=== PATIENT | female | born 1950 | race Caucasian/White ===

== ENCOUNTER 2018-01-21 22:29 | Inpatient (IN) | payer OTHER, MEDICARE ==
[~2018-01-21] VITALS: Ht 162.6 cm; Wt 142.0 kg
[~2018-01-21 22:29] MED LIST: ASPI81CH5 PO; CALC-197 PO; DESE1CRE; DYAZ PO; ESTR42.5V PV; FENO35TA PO; GABA250S PO; GLYB1TAB51 PO; METF-324 PO; NIAC500 PO; NORV2.5T11 PO; PREV30CA36 PO; SITA100 PO; TAB-TAB PO; VASO10TA8 PO; VITA-13 PO; VITA100L OR; VITA500T10 PO; ZOCO40TA PO
[2018-01-21 22:39] VITALS: BP 127/78; PULSE 87; RESP 16; TEMP 97.7; O2SAT 97
[2018-01-22] VITALS (7 sets, daily range): BP systolic 105–187; BP diastolic 51–106; PULSE 80–102; RESP 15–17; TEMP 98.1–98.9; O2SAT 92–97
--- NOTE | 2018-01-22 01:58 | PD ---
HPI Chief Complaint: Abdominal Pain Time Seen by Provider: 01:15 Travel History International Travel<30 days: No Contact w/Intl Traveler<30days: No Traveled to known affect area: No History of Present Illness HPI Patient is a 67-year-old female with history of hypertension and diabetes. She is coming into the ER saying she is having abdominal pain off and on for the last few months. But today she is having worse pain periumbilical and diffuse nausea vomiting at home and she said she vomited 3 times awaiting in the ER. Patient is on Lantus and she is on multiple antihypertensives including a combination water pill as well as enalapril and Norvasc pressure in the ER is 187/110 she says she took all her meds main complaint is nausea vomiting chronic abdominal pain she says she has never had a CAT scan for this pain and she has been been given Hyoscyamine for colitis spasms from PCP which she took tonight without relief. PFSH Past Medical History Cardiac Catheterization: Yes (40% BLOCKAGE ) High Cholesterol: Yes Coronary Artery Disease: Yes Diabetes: Yes Patient Takes Glucophage: Yes Diminished Hearing: No Gastrointestinal Disorders: Yes (ULCER) GERD: Yes Hiatal Hernia: Yes Hypertension: Yes Integumentary: Yes (BASAL CELL ) Immunizations Current: No Ulcer: Yes (PEPTIC, DUODENAL) Influenza Vaccination: No Menopausal: Yes : 0 Para: 0 Past Surgical History Hysterectomy: Yes (PARTIAL 20 YRS AGO) Other Surgery: Yes (LEFT HAND CYST REMOVAL, BASAL CELL REMOVED FOREHEAD) Social History Alcohol Use: Yes (OCC) Tobacco Use: No Substance Use: No Allergies-Medications (Allergen,Severity, Reaction): Coded Allergies: diatrizoate meglumine (Unverified Allergy, Intermediate, HIVES, EDEMA, ) gadobenic acid (Unverified Allergy, Intermediate, HIVES, EDEMA, 01/21/18) gadodiamide (Unverified Allergy, Intermediate, HIVES, EDEMA, 01/21/18) gadoteridol (Unverified Allergy, Intermediate, HIVES, EDEMA, 01/21/18) iodixanol (Unverified Allergy, Intermediate, HIVES, EDEMA, 01/21/18) iohexol (Unverified Allergy, Intermediate, Hives, 01/21/18) Reported Meds & Prescriptions Reported Meds & Active Scripts Active Reported Ocuvite Adult 50+ (Multiple Vitamins W/ Minerals) 1 Cap 1 Cap PO DAILY Niacin 500 Mg Tab 500 Mg PO BID Vitamin D3 (Cholecalciferol) 1,000 Unit Tab 1,000 Units PO DAILY Vitamin B-12 (Cyanocobalamin) 500 Mcg Tab 500 Mcg PO DAILY Aspirin 81 Mg Chew 81 Mg CHEW DAILY Vitamin C (Ascorbic Acid) 1,000 Mg Tablet.er 1,000 Mg PO DAILY Multiple Vitamin 1 Tab 1 Tab PO DAILY Calcium Carbonate 1,500 Mg Tab 1,500 Mg PO DAILY 1,500 mg calcium carbonate (600 mg elemental calcium) Norvasc (Amlodipine Besylate) 2.5 Mg Tab 2.5 Mg PO DAILY Metformin (Metformin HCl) 500 Mg Tab 500 Mg PO BIDPC Levothyroxine (Levothyroxine Sodium) 25 Mcg Tab 25 Mcg PO DAILY Victoza Inj (Liraglutide Inj) 18 Mg/3 Ml Pen 1.8 Mg SQ HS Invokana (Canagliflozin) 300 Mg Tab 300 Mg PO DAILY Take before 1st meal of day. Simvastatin 5 Mg Tab 5 Mg PO DAILY Gabapentin 300 Mg Cap 300 Mg PO BID Fenofibric Acid Dr (Choline Fenofibrate DR) 135 mg Capdr 135 Mg PO DAILY Physical Exam Narrative GENERAL: Nontoxic-appearing morbidly obese SKIN: Warm and dry. HEAD: Atraumatic. Normocephalic. EYES: Pupils equal and round. No scleral icterus. No injection or drainage. ENT: No nasal bleeding or discharge. Mucous membranes pink and moist. NECK: Trachea midline. No JVD. CARDIOVASCULAR: Regular rate and rhythm. RESPIRATORY: No accessory muscle use. Clear to auscultation. Breath sounds equal bilaterally. GASTROINTESTINAL: Abdomen obese and diffusely tender no specific focal findings , . Hepatic and splenic margins not palpable. MUSCULOSKELETAL: Extremities without clubbing, cyanosis, or edema. No obvious deformities. NEUROLOGICAL: Awake and alert. No obvious cranial nerve deficits. Motor grossly within normal limits. Five out of 5 muscle strength in the arms and legs. Normal speech. PSYCHIATRIC: Appropriate mood and affect; insight and judgment normal. Data Data Last Documented VS Vital Signs Date Time Temp Pulse Resp B/P (MAP) Pulse Ox O2 Delivery O2 Flow Rate FiO2 01/22/18 03:48 92 15 124/64 (84) 97 01/22/18 01:47 Room Air 01/21/18 22:39 97.7 Orders Orders Complete Blood Count With Diff (01/21/18 23:48) Comprehensive Metabolic Panel (01/21/18 23:48) Urinalysis - C+S If Indicated (01/21/18 23:48) Iv Access Insert/Monitor (01/21/18 23:48) Oxygen Administration (01/21/18 23:48) Oximetry (01/21/18 23:48) Lipase (01/21/18 23:48) Sodium Chlorid 0.9% 500 Ml Inj (Ns 500 M (01/22/18 02:00) Famotidine Inj (Pepcid Inj) (01/22/18 02:00) Ondansetron Inj (Zofran Inj) (01/22/18 02:00) Morphine Inj (Morphine Inj) (01/22/18 02:00) Diatrizoate Liq ( Gastroview Liq) (01/22/18 02:00) Ct Abd/Pel W/O Iv Contrast (01/22/18 ) Admit Order (Ed Use Only) (01/22/18 04:10) Piperacil-Tazo 4.5 Gm Premix (Zosyn 4.5 (01/22/18 04:00) Admit To Inpatient (01/22/18 ) Vital Signs (Adult) Q4H (01/22/18 04:08) Activity Oob With Assistance (01/22/18 04:08) Intake + Output LEXIS.QSHIFT (01/22/18 04:08) Diet Npo (01/22/18 Breakfast) Sodium Chlor 0.9% 1000 Ml Inj (Ns 1000 M (01/22/18 04:08) Sodium Chloride 0.9% Flush (Ns Flush) (01/22/18 04:15) Sodium Chloride 0.9% Flush (Ns Flush) (01/22/18 09:00) Ondansetron Inj (Zofran Inj) (01/22/18 04:15) Comprehensive Metabolic Panel (01/23/18 06:00) Complete Blood Count With Diff (01/23/18 06:00) Scd Bilateral/Knee High LEXIS.BID (01/22/18 04:08) Nish Bilateral/Knee High LEXIS.QSHIFT (01/22/18 04:11) Acetaminophen (Tylenol) (01/22/18 04:15) Acetamin-Hydrocod 325-5 Mg (Lamont 5-325 (01/22/18 04:15) Morphine Inj (Morphine Inj) (01/22/18 04:15) Docusate Sodium-Senna (Johanny-Colace) (01/22/18 09:00) Magnesium Hydroxide Liq (Milk Of Magnesi (01/22/18 04:15) Sennosides (Senokot) (01/22/18 04:15) Bisacodyl Supp (Dulcolax Supp) (01/22/18 04:15) Lactulose Liq (Lactulose Liq) (01/22/18 04:15) Inpatient Certification (01/22/18 ) Labs Laboratory Tests Test 01/22/18 01:40 White Blood Count 16.8 TH/MM3 Red Blood Count 5.91 MIL/MM3 Hemoglobin 17.2 GM/DL Hematocrit 51.0 % Mean Corpuscular Volume 86.3 FL Mean Corpuscular Hemoglobin 29.1 PG Mean Corpuscular Hemoglobin Concent 33.7 % Red Cell Distribution Width 13.9 % Platelet Count 300 TH/MM3 Mean Platelet Volume 8.4 FL Neutrophils (%) (Auto) 79.2 % Lymphocytes (%) (Auto) 15.5 % Monocytes (%) (Auto) 4.6 % Eosinophils (%) (Auto) 0.4 % Basophils (%) (Auto) 0.3 % Neutrophils # (Auto) 13.3 TH/MM3 Lymphocytes # (Auto) 2.6 TH/MM3 Monocytes # (Auto) 0.8 TH/MM3 Eosinophils # (Auto) 0.1 TH/MM3 Basophils # (Auto) 0.0 TH/MM3 CBC Comment DIFF FINAL Differential Comment Urine Color YELLOW Urine Turbidity CLEAR Urine pH 5.0 Urine Specific [place] 1.041 Urine Protein NEG mg/dL Urine Glucose (UA) 1000 mg/dL Urine Ketones TRACE mg/dL Urine Occult Blood NEG Urine Nitrite NEG Urine Bilirubin NEG Urine Urobilinogen LESS THAN 2.0 MG/DL Urine Leukocyte Esterase TRACE Urine RBC 2 /hpf Urine WBC 4 /hpf Urine Squamous Epithelial Cells 2 /hpf Microscopic Urinalysis Comment CULT NOT INDICATED Blood Urea Nitrogen 22 MG/DL Creatinine 1.05 MG/DL Random Glucose 220 MG/DL Total Protein 8.1 GM/DL Albumin 4.0 GM/DL Calcium Level 10.2 MG/DL Alkaline Phosphatase 86 U/L Aspartate Amino Transf (AST/SGOT) 34 U/L Alanine Aminotransferase (ALT/SGPT) 40 U/L Total Bilirubin 0.5 MG/DL Sodium Level 138 MEQ/L Potassium Level 4.1 MEQ/L Chloride Level 98 MEQ/L Carbon Dioxide Level 27.8 MEQ/L Anion Gap 12 MEQ/L Estimat Glomerular Filtration Rate 52 ML/MIN Lipase 234 U/L [facility] Medical Decision Making Medical Screen Exam Complete: Yes Emergency Medical Condition: Yes Differential Diagnosis GERD IBS crohns UC ileus paralytic ileus , chronic ABDO pain NOS hernia incarcerated ,other pancreatitis gastritis GB disease Narrative Course CT shows Hernia with SBO early or partial and Dr Webb is called and he comes bedside withoin 30 minutes and pt is taken to the OR for reduction surgical , IV fluid and pain meds and NPO for OR Physician Communication Physician Communication dr webb surgery Diagnosis Primary Impression: Bowel obstruction Qualified Codes: K56.600 - Partial intestinal obstruction, unspecified as to cause Additional Impression: Incarcerated hernia Admitting Information Admitting Physician Requests: Admit Scripts Hydrocodone-Acetaminophen (Lamont) 5 Mg-325 Mg Tab 1 TAB PO Q4H Y for PAIN, #20 TAB 0 Refills Prov: Mireya Rubalcava MD 01/23/18 Levofloxacin (Levaquin) 750 Mg Tablet 750 MG PO DAILY for Infection, #7 TAB 0 Refills Prov: Mireya Rubalcava MD 01/23/18 Kristopher Noel MD Jan 22, 2018 01:58
[2018-01-22] MEDS ORDERED: MORPHINE SULFATE 2 MG/ML INJ IV PUSH ONE ×2 (02:00→04:45)
[2018-01-22] MEDS ORDERED: SODIUM CHLORID 0.9% 500 ML INJ 500 ML IV ONE ×2 (02:00→04:15)
[2018-01-22] MEDS ORDERED: FAMOTIDINE 20 MG/2 ML VIAL IV PUSH SCH (02:00)
[2018-01-22] MEDS ORDERED: ONDANSETRON HCL 4 MG/2 ML VIAL IV PUSH ONE (02:00)
[2018-01-22] MEDS ORDERED: DIATRIZOATE MEGLUM/DIATRIZOATE SOD 9 ML CUP PO ONE (02:00)
[2018-01-22 02:06] LABS: BILIRUBIN, URINE NEG (NEG); BLOOD, URINE NEG (NEG); GLUCOSE,URINE 1000 mg/dL (NEG); KETONE, URINE TRACE mg/dL (NEG); NITRITE,URINE NEG (NEG); SQUAMOUS EPITHELIAL CELL URINE 2 /hpf (0-5); URINE COLOR YELLOW (YELLW/STRAW); URINE LEUKOCYTE ESTERASE TRACE (NEG)
[2018-01-22 02:21] LABS: ALKALINE PHOSPHATASE 86 U/L (45-117); TOTAL BILIRUBIN ADULT 0.5 MG/DL (0.2-1.0); TOTAL PROTEIN 8.1 GM/DL (6.4-8.2)
[2018-01-22 02:26] LABS: ALT (GPT) 40 U/L (10-53); AST (GOT) 34 U/L (15-37); BICARBONATE 27.8 MEQ/L (21.0-32.0); BLOOD UREA NITROGEN 22 MG/DL (7-18); CALCIUM 10.2 MG/DL (8.5-10.1); CHLORIDE 98 MEQ/L (98-107); CREATININE 1.05 MG/DL (0.50-1.00); GLOMERULAR FILTRATION RATE 52 ML/MIN (>89); GLUCOSE,RANDOM 220 MG/DL (74-106); SODIUM (NA) 138 MEQ/L (136-145)
[2018-01-22 02:30] LABS: AUTOMATED NEUTROPHIL # 13.3 TH/MM3 (1.8-7.7); BASOPHIL % 0.3 % (0.0-2.0); EOSINOPHIL # 0.1 TH/MM3 (0-0.4); EOSINOPHIL % 0.4 % (0.0-4.0); HEMOGLOBIN 17.2 GM/DL (11.6-15.3); LYMPH % 15.5 % (9.0-44.0); LYMPHOCYTE # 2.6 TH/MM3 (1.0-4.8); MEAN CELL VOLUME 86.3 FL (80.0-100.0); MEAN CORPUSCULAR HEMOGLOBIN 29.1 PG (27.0-34.0); MEAN CORPUSCULAR HGB CONC 33.7 % (32.0-36.0); MEAN PLATELET VOLUME 8.4 FL (7.0-11.0); MONO % 4.6 % (0.0-8.0); MONOCYTE # 0.8 TH/MM3 (0-0.9); NEUT % 79.2 % (16.0-70.0); PLATELET COUNT 300 TH/MM3 (150-450); RED BLOOD COUNT 5.91 MIL/MM3 (4.00-5.30); RED CELL DISTRIBUTION WIDTH 13.9 % (11.6-17.2); WHITE BLOOD COUNT 16.8 TH/MM3 (4.0-11.0)
--- NOTE | 2018-01-22 02:41 | RADRPT ---
EXAM DATE/TIME: 01/22/2018 02:16 [place] COMPARISON: No previous studies available for comparison. INDICATIONS : Abdominal pain with nausea and vomiting. ORAL CONTRAST: No oral contrast ingested. RADIATION DOSE: 29.32 CTDIvol (mGy) ; Patient body habitus MEDICAL HISTORY : Hypertension. Hernia, hiatal. SURGICAL HISTORY : Hysterectomy. ENCOUNTER: Initial ACUITY: 1 day PAIN SCALE: 8/10 LOCATION: abdomen TECHNIQUE: Volumetric scanning of the abdomen and pelvis was performed. Using automated exposure control and ad justment of the mA and/or kV according to patient size, radiation dose was kept as low as reasonably achievable to obtain optimal diagnostic quality images. DICOM format image data is available electro nically for review and comparison. FINDINGS: LOWER LUNGS: The visualized lower lungs are clear. LIVER: Homogeneous density without lesion. There is no dilation of the biliary tree. No calcified [place] es. SPLEEN: Normal size without lesion. PANCREAS: Within normal limits. KIDNEYS: Normal in size and shape. There is no mass, stone, or hydronephrosis. ADRENAL GLANDS: Within normal limits. VASCULAR: There is no aortic aneurysm. BOWEL/MESENTERY: There are multiple loops of borderline dilated air-containing small bowel in the upper and central ab domen with multiple air-fluid levels. These extend down into the anterior abdominal wall hernia. The bowel loops distal to the hernia are smaller in size in the colon is decompressed. There is no free a ir or fluid. There are scattered diverticuli volving the sigmoid colon. ABDOMINAL WALL: Anterior abdominal wall hernia containing a loop of small bowel. There is mild inflammatory change avendaño rrounding the hernia at the level of the defect.. RETROPERITONEUM: There is no lymphadenopathy. BLADDER: No wall thickening or mass. REPRODUCTIVE: Within normal limits. INGUINAL: There is no lymphadenopathy or hernia. MUSCULOSKELETAL: Within normal limits for patient age. CONCLUSION: 1. Anterior abdominal wall hernia containing a loop of ileum with apparent early or partial obstructi on. The small bowel proximal to the hernia a borderline dilated with multiple air-fluid levels. The b owel distal to the hernia is decompressed. 2. Mild diverticulosis. Derrick French MD on January 22, 2018 at 2:34 Board Certified Radiologist. This report was verified electronically.
[2018-01-22] MEDS ORDERED: PIPERACIL-TAZO 4.5 GM PREMIX 100 ML IV SCH (04:00)
[2018-01-22] MEDS: SODIUM CHLOR 0.9% 1000 ML INJ 1,000 ML IV SCH ×2 (04:08→14:08)
[2018-01-22] MEDS ORDERED: MORPHINE SULFATE 2 MG/ML INJ IV PUSH PRN (04:15)
[2018-01-22] MEDS ORDERED: ONDANSETRON HCL 4 MG/2 ML VIAL IVP PRN (04:15)
[2018-01-22] MEDS ORDERED: SODIUM CHLORIDE 0.9% FLUSH 10 ML FLUSH IV FLUSH PRN (04:15)
[2018-01-22] MEDS ORDERED: ACETAMINOPHEN 325 MG TAB PO PRN (04:15)
[2018-01-22] MEDS ORDERED: BISACODYL 10 MG SUPP RECTAL PRN (04:15)
[2018-01-22] MEDS ORDERED: SENNOSIDES 8.6 MG TAB PO PRN (04:15)
[2018-01-22] MEDS ORDERED: MAGNESIUM HYDROXIDE SUSP 30 ML CUP PO PRN (04:15)
[2018-01-22] MEDS ORDERED: LACTULOSE SYRUP 20 GM/30 ML CUP PO PRN (04:15)
[2018-01-22] MEDS ORDERED: ACETAMINOPHEN/HYDROcodone 325 MG/5 MG TAB PO PRN (04:15)
[2018-01-22] MEDS ORDERED: SIMV5TAB3 PO (04:41)
[2018-01-22] MEDS ORDERED: LEVO25TA4 PO (04:41)
[2018-01-22] MEDS ORDERED: NIAC500T5 PO (04:41)
[2018-01-22] MEDS ORDERED: VITA500T4 PO (04:41)
[2018-01-22] MEDS ORDERED: ASPI-516 CHEW (04:41)
[2018-01-22] MEDS ORDERED: ASCO100029 PO (04:41)
[2018-01-22] MEDS ORDERED: NORV2.5T PO (04:41)
[2018-01-22] MEDS ORDERED: METF500T PO (04:41)
[2018-01-22] MEDS ORDERED: VICT18IN SQ (04:41)
[2018-01-22] MEDS ORDERED: LANTUS2P SQ (04:41)
[2018-01-22] MEDS ORDERED: CALC600T4 PO (04:41)
[2018-01-22] MEDS ORDERED: VITA100018 PO (04:41)
[2018-01-22] MEDS ORDERED: OCUVCAP2 PO (04:41)
[2018-01-22] MEDS ORDERED: GABA300C5 PO (04:41)
[2018-01-22] MEDS ORDERED: ENAL20TA PO (04:41)
[2018-01-22] MEDS ORDERED: CHOL1CAP2 PO (04:41)
[2018-01-22] MEDS ORDERED: TRIA37.53 PO (04:41)
[2018-01-22] MEDS ORDERED: CANA300T PO (04:41)
[2018-01-22] MEDS ORDERED: MULTTAB67 PO (04:41)
[2018-01-22] MEDS ORDERED: GLUCAGON 1 MG/ML VIAL OTHER PRN (04:45)
[2018-01-22] MEDS ORDERED: DEXTROSE 50% IN WATER 50 ML VIAL(D50) IV PUSH PRN (04:45)
--- NOTE | 2018-01-22 04:45 | HHI.HP ---
[facility] Service [facility] Primary Care Physician Eugene Mark MD Admission Diagnosis hernia with early obstruction Diagnoses: (1) Bowel obstruction Diagnosis: Principal (2) Hernia Diagnosis: Principal (3) Leukocytosis Diagnosis: Principal (4) HTN (hypertension) Diagnosis: Principal (5) DM (diabetes mellitus) Diagnosis: Principal Travel History International Travel<30 Days: No Contact w/Intl Traveler <30 Da: No Traveled to Known Affected Are: No History of Present Illness This is a 67-year-old female with a PMH of HTN, Hyperlipidemia, CAD, DM and PUD who presented to ER with complaints of abdominal pain x2 months. States pain has been intermittent, cramping, associated w/ nausea/vomiting. Today, states pain was severe 8-07/11, took Hycosamine however no improvement at which time she came to the ER. Denies fever, chills or diarrhea. On arrival, BP 127/78, HR 87, O2 sat 97% on RA, Afebrile. WBC 16.8. Creatinine 1.05, produces 0.55 on 05/11/14. BS 220. UA negative for UTI. CT Abdomen/Pelvis with anterior abdominal wall hernia containing a loop of ileum with partial obstruction. Dr. Webb consulted, plan is for surgical intervention this morning. Review of Systems Except as stated in HPI: all other systems reviewed are Neg ROS: 14 point review of systems otherwise negative. Past Family Social History Past Medical History PMH: HTN, Hyperlipidemia, CAD, DM and PUD Past Surgical History PAST SURGICAL HISTORY: Partial Hysterectomy Allergies: Coded Allergies: diatrizoate meglumine (Unverified Allergy, Intermediate, HIVES, EDEMA, ) gadobenic acid (Unverified Allergy, Intermediate, HIVES, EDEMA, 01/21/18) gadodiamide (Unverified Allergy, Intermediate, HIVES, EDEMA, 01/21/18) gadoteridol (Unverified Allergy, Intermediate, HIVES, EDEMA, 01/21/18) iodixanol (Unverified Allergy, Intermediate, HIVES, EDEMA, 01/21/18) iohexol (Unverified Allergy, Intermediate, Hives, 01/21/18) Family History PAST FAMILY HISTORY: Reviewed. No h/o DM or CAD Social History PAST SOCIAL HISTORY: Occasional alcohol. Negative for tobacco or drugs. Physical Exam Vital Signs Vital Signs Date Time Temp Pulse Resp B/P (MAP) Pulse Ox O2 Delivery O2 Flow Rate FiO2 01/22/18 03:48 92 15 124/64 (84) 97 01/22/18 01:47 85 16 187/106 (133) 95 Room Air 01/22/18 01:44 96 Room Air 01/21/18 22:39 97.7 87 16 127/78 (94) 97 Room Air Physical Exam PE: GENERAL: Pleasant middle-aged white female in no acute distress. HEENT: PERRLA, EOMI. No scleral icterus or conjunctival pallor. No lid lag or facial droop. CARDIOVASCULAR: Regular rate and rhythm. No obvious murmurs to auscultation. No chest tenderness to palpation. RESPIRATORY: No obvious rhonchi or wheezing. Clear to auscultation. Breath sounds equal bilaterally. GASTROINTESTINAL: Abdomen soft, generalized tenderness to palpation, nondistended. BS normal. MUSCULOSKELETAL: Extremities without clubbing, cyanosis, or edema. No obvious deformities. NEUROLOGICAL: Awake, alert and oriented x4. No focal neurologic deficits. Moving both upper and lower extremities spontaneously. Laboratory Laboratory Tests Test 01/22/18 01:40 White Blood Count 16.8 Red Blood Count 5.91 Hemoglobin 17.2 Hematocrit 51.0 Mean Corpuscular Volume 86.3 Mean Corpuscular Hemoglobin 29.1 Mean Corpuscular Hemoglobin Concent 33.7 Red Cell Distribution Width 13.9 Platelet Count 300 Mean Platelet Volume 8.4 Neutrophils (%) (Auto) 79.2 Lymphocytes (%) (Auto) 15.5 Monocytes (%) (Auto) 4.6 Eosinophils (%) (Auto) 0.4 Basophils (%) (Auto) 0.3 Neutrophils # (Auto) 13.3 Lymphocytes # (Auto) 2.6 Monocytes # (Auto) 0.8 Eosinophils # (Auto) 0.1 Basophils # (Auto) 0.0 CBC Comment DIFF FINAL Differential Comment Urine Color YELLOW Urine Turbidity CLEAR Urine pH 5.0 Urine Specific [place] 1.041 Urine Protein NEG Urine Glucose (UA) 1000 Urine Ketones TRACE Urine Occult Blood NEG Urine Nitrite NEG Urine Bilirubin NEG Urine Urobilinogen LESS THAN 2.0 Urine Leukocyte Esterase TRACE Urine RBC 2 Urine WBC 4 Urine Squamous Epithelial Cells 2 Microscopic Urinalysis Comment CULT NOT INDICATED Blood Urea Nitrogen 22 Creatinine 1.05 Random Glucose 220 Total Protein 8.1 Albumin 4.0 Calcium Level 10.2 Alkaline Phosphatase 86 Aspartate Amino Transf (AST/SGOT) 34 Alanine Aminotransferase (ALT/SGPT) 40 Total Bilirubin 0.5 Sodium Level 138 Potassium Level 4.1 Chloride Level 98 Carbon Dioxide Level 27.8 Anion Gap 12 Estimat Glomerular Filtration Rate 52 Lipase 234 Result Diagram: 01/22/1813901/22/18139 Caprini VTE Risk Assessment Caprini VTE Risk Assessment: No/Low Risk (score <= 1) Caprini Risk Assessment Model Point Value = 1 Point Value = 2 Point Value = 3 Point Value = 5 Age 41-60 Minor surgery BMI > 25 kg/m2 Swollen legs Varicose veins or History of unexplained or recurrent spontaneous Oral contraceptives or hormone replacement Sepsis (< 1 month) Serious lung disease, including pneumonia (< 1 month) Abnormal pulmonary function Acute myocardial infarction Congestive heart failure (< 1 month) History of inflammatory bowel disease Medical patient at bed rest Age 61-74 Arthroscopic surgery Major open surgery (> 45 min) Laparoscopic surgery (> 45 min) Malignancy Confined to bed (> 72 hours) Immobilizing plaster cast Central venous access Age >= 75 History of VTE Family history of VTE Factor V Leiden Prothrombin [id number] Lupus anticoagulant Anticardiolipin antibodies Elevated serum homocysteine Heparin-induced thrombocytopenia Other congenital or acquired thrombophilia Stroke (< 1 month) Elective arthroplasty Hip, pelvis, or leg fracture Acute spinal cord injury (< 1 month) Prophylaxis Regimen Total Risk Factor Score Risk Level Prophylaxis Regimen 0-1 Low Early ambulation 2 Moderate Order ONE of the following: *Sequential Compression Device (SCD) *Heparin 5000 units SQ BID 3-4 Higher Order ONE of the following medications: *Heparin 5000 units SQ TID *Enoxaparin/Lovenox 40 mg SQ daily (WT < 150 kg, CrCl > 30 mL/min) *Enoxaparin/Lovenox 30 mg SQ daily (WT < 150 kg, CrCl > 10-29 mL/min) *Enoxaparin/Lovenox 30 mg SQ BID (WT < 150 kg, CrCl > 30 mL/min) AND/OR *Sequential Compression Device (SCD) 5 or more Highest Order ONE of the following medications: *Heparin 5000 units SQ TID (Preferred with Epidurals) *Enoxaparin/Lovenox 40 mg SQ daily (WT < 150 kg, CrCl > 30 mL/min) *Enoxaparin/Lovenox 30 mg SQ daily (WT < 150 kg, CrCl > 10-29 mL/min) *Enoxaparin/Lovenox 30 mg SQ BID (WT < 150 kg, CrCl > 30 mL/min) AND *Sequential Compression Device (SCD) Assessment and Plan Problem List: (1) Bowel obstruction ICD Code: K56.609 - Unspecified intestinal obstruction, unspecified as to partial versus complete obstruction (2) Hernia ICD Code: K46.9 - Unspecified abdominal hernia without obstruction or gangrene (3) Leukocytosis ICD Code: D72.829 - Elevated white blood cell count, unspecified (4) HTN (hypertension) ICD Code: I10 - Essential (primary) hypertension (5) DM (diabetes mellitus) ICD Code: E11.9 - Type 2 diabetes mellitus without complications Assessment and Plan A/P: 1. Bowel Obstruction: Partial. CT Abd/Pelvis w/ early/partial obstruction secondary to hernia, images reviewed by me. Dr. Webb consulted, plan is for surgical intervention this morning. NPO, IVF, analgesics/antiemetics as needed. 2. Hernia: c/o abdominal pain x2 months, CT Abd/Pelvis w/ anterior abdominal wall hernia causing obstruction as above. Pending surgical intervention. 3. Leukocytosis: WBC 16.8, U/a negative for UTI. Start on empiric antibiotics w/ Zosyn IV, repeat labs in am. 4. HTN: Uncontrolled. BP 180's, likely compounded by pain complaints. Optimize pain control. Monitor BP. Antihypertensives as needed. 5. DM: Sliding scale w/ Accu-Cheks. Hold home Lantus for surgical intervention. 6. DVT Prophylaxis: SCD/Teds. 7. Social work for d/c planning as needed. 8. Case discussed w/ ER physician at length, labs/records/imaging reviewed by me. Physician Certification 2 Midnight Certification Type: Admission for Inpatient Services Order for Inpatient Services The services are ordered in accordance with Medicare regulations or non- Medicare payer requirements, as applicable. In the case of services not specified as inpatient-only, they are appropriately provided as inpatient services in accordance with the 2-midnight benchmark. Estimated LOS (days): 2 days is the estimated time the patient will need to remain in the hospital, assuming treatment plan goals are met and no additional complications. Post-Hospital Plan: Not yet determined Neyda Aguayo MD Jan 22, 2018 04:45
[2018-01-22] MEDS ORDERED: SODIUM BICARBONATE 8.4% INJ 50 MEQ/50 ML SYR ONE (04:55)
[2018-01-22] MEDS ORDERED: LIDOCAINE 1%/EPINEPHrine 1:100,000 SOLN 30 ML VIAL ONE (04:55)
[2018-01-22] MEDS ORDERED: BUPIVACAINE HCL PF 0.5% 30 ML VIAL ONE (04:56)
[2018-01-22] MEDS ORDERED: BACITRACIN TOP OINT 15 GM TUBE ONE (04:56)
[2018-01-22] MEDS ORDERED: ACETAMINOPHEN 1000 MG/100 ML 100 ML IV ONE (05:03)
[2018-01-22] MEDS ORDERED: FAMOTIDINE 20 MG/2 ML VIAL ONE (05:03)
[2018-01-22] MEDS ORDERED: metroNIDAZOLE 500 MG INJ 100 ML IV ONE (05:12)
[2018-01-22] MEDS ORDERED: ceFAZolin INJ 1,000 MG VIAL ONE (05:32)
--- NOTE | 2018-01-22 05:37 | MB ---
cc: Chuck Webb MD DATE: 01/22/2018 DATE OF CONSULTATION: 01/22/2018. REASON FOR CONSULTATION: Incarcerated umbilical hernia. HISTORY OF PRESENT ILLNESS: Ms. Esquivel is a pleasant 67-year-old morbidly obese female who presented to the emergency department with a 1-day history of severe abdominal pain associated with nausea and vomiting. She states that yesterday she developed worsening abdominal pain associated with multiple episodes of nausea and vomiting. She states she has had some lower abdominal pain for the last few months, but this episode in the last 24 hours was much worse. She had no known history of an umbilical hernia, but she is morbidly obese. She went to the emergency room where she was seen and evaluated. She had a CT scan of the abdomen and pelvis, which demonstrated an incarcerated umbilical hernia with small bowel causing a mild obstruction. Immediate surgical consultation was requested. The patient reports she did not know that she had a hernia. PAST MEDICAL HISTORY: Includes insulin-dependent diabetes mellitus, gastroesophageal reflux disease, coronary artery disease, history of basal cell carcinoma. PAST SURGICAL HISTORY: She has had a basal cell carcinoma removed from her forehead. She has had a hysterectomy. She has had a cyst excised from her left hand. MEDICATIONS: List is extensive. Please see the EMR. ALLERGIES: Her allergy list includes DIATRIZOATE MEGLUMINE. GADOBENIC ACID. GADODIAMIDE. GADOTERIDOL. IODIXANOL. IOHEXOL. SOCIAL HISTORY: She does not smoke. She drinks alcohol on a social basis. She lives here locally. She is accompanied by her sister in the emergency room. FAMILY HISTORY: Noncontributory. PHYSICAL EXAMINATION: VITAL SIGNS: Temperature is 97, pulse is 80, blood pressure is 120/60, respiratory rate 20. GENERAL: This is a morbidly obese, pleasant female sitting in the emergency room accompanied by her sister. HEENT: Pupils equal, round, anicteric. Sclerae white. Oropharynx is clear and moist. NECK: Supple. No masses. LUNGS: Clear to auscultation bilaterally. HEART: S1, S2. No murmur. ABDOMEN: Soft, tender in the umbilical region with some erythema. There is a palpable mass noted. It is tender. It is nonreducible. EXTREMITIES: Free range of motion x4. NEUROLOGIC: She is alert and oriented x3. LABORATORY DATA: White blood cell count 16, hemoglobin 17, platelet count is 300. Electrolytes within normal limits. Slight elevation of creatinine 1.05, elevation of glucose 220. Urinalysis is negative. CT of the abdomen and pelvis demonstrates an incarcerated anterior abdominal wall hernia with small bowel, causing mild obstruction of proximal small bowel; distal bowel is decompressed. No significant edema of the bowel is noted in the incarcerated hernia. IMPRESSION: Incarcerated abdominal wall hernia with small bowel, causing obstruction. PLAN: Immediate operative intervention was recommended to the patient. Risks and benefits of the procedure including possible infection, recurrent hernia, leakage of bowel, stroke, heart attack, wound infection was all discussed with the patient. She understands. She understands this is an emergent surgical procedure and carries an increased risk due to her morbid obesity and insulin-dependent diabetes mellitus. She had a clear understanding of this and is willing to proceed with surgery. The operating room was notified and she will be brought up immediately. MD KEM Aguilar/KANE , 05:00 AM , 05:35 AM
[2018-01-22] MEDS ORDERED: MORPHINE SULFATE 4 MG/ML INJ IV PUSH PRN (06:30)
[2018-01-22] MEDS ORDERED: HYDROmorphone HCL PF 1 MG/ML VIAL IV PUSH PRN (06:30)
[2018-01-22] MEDS ORDERED: KETOROLAC TROMETHAMINE 60 MG/2 ML (IM) VIAL IM PRN (06:30)
--- NOTE | 2018-01-22 06:52 | MP ---
cc: Chuck Webb MD DATE OF OPERATION: 01/22/2018 DATE OF PROCEDURE: 01/22/2018 PREOPERATIVE DIAGNOSIS: Incarcerated umbilical hernia causing partial small-bowel obstruction. POSTOPERATIVE DIAGNOSIS: 1. Incarcerated umbilical hernia causing partial small-bowel obstruction. 2. Viable bowel and a large amount of omentum within hernia sac. PROCEDURE PERFORMED: Reduction and repair of open umbilical hernia (primary repair). SURGEON: Chuck Webb MD. ANESTHESIA: General endotracheal. COMPLICATIONS: None. INDICATIONS FOR PROCEDURE: Ms. Esquivel is a pleasant 67-year-old morbidly obese female who presented to the emergency department with abdominal pain, nausea and vomiting. CT imaging demonstrated an umbilical hernia with a loop of small bowel and a large amount of omentum within it. The loop of small bowel was causing a partial obstruction proximally. She was advised to go the operating room immediately. She understood this was a high-risk surgery due to her morbid obesity and the fact this was an emergency surgery, and she was willing to proceed. DETAILS OF PROCEDURE: The patient was identified, brought to the operating room, placed supine on the operating table. After adequate general anesthesia was achieved, the abdomen was prepped and draped in standard surgical fashion. Supraumbilical space was anesthetized with 0.25% Marcaine. Supraumbilical incision was made. Dissection was carried down through subcutaneous tissue, immediately identifying a hernia sac. The hernia sac was dissected circumferentially away from the umbilical stalk. Hernia sac was opened and found to contain some bloody fluid. The majority of the hernia sac was omentum. There was a single loop of small bowel, which basically spontaneously reduced when we opened the hernia sac. It was noted to be pink and viable and not compromised in any way. Because of the large amount of omentum stuck within the hernia sac, I elected to go ahead and resect it, as it would not spontaneously reduce without significant difficulty. The omentum was clamped, and tied off with 2-0 Vicryl sutures, and freed up completely. Once the omentum was freed up, it was sent to pathology for analysis. Attention was now directed to the hernia sac. The hernia sac was followed down to the abdominal wall fascia. Abdominal wall fascia was then cleaned off circumferentially. Hernia sac was then resected at the level of the abdominal wall fascia. Hernia sac was also sent to pathology for analysis. Attention was now directed to repair. Because this was incarcerated hernia, I elected to do a primary repair without mesh. Defect measured about 3 cm in diameter. It was closed primarily using 0 Prolene sutures, interrupted x5. Repair came together quite well. The tissue quality was good. A finger sweep of the peritoneum was done prior to closure and there was no other bowel or omentum anywhere near the fascial defect. With this, the repair was completed. Fascia was injected with 0.25% Marcaine circumferentially. The wound was copiously irrigated with normal saline solution. The umbilical stalk was then tacked down to the abdominal fascia using a 2-0 Vicryl suture. Subcutaneous fat was then closed with 3-0 Vicryl and skin was closed with 4-0 Vicryl. The patient tolerated the procedure well and was awakened and brought to recovery room in stable condition. Chuck MD KEM Luciano/MARTI , 06:28 AM , 06:51 AM
[2018-01-22] MEDS ORDERED: KETOROLAC TROMETHAMINE 30 MG/ML (IVP) VIAL IV PUSH PRN (07:00)
[2018-01-22] MEDS: PIPERACIL-TAZO 4.5 GM PREMIX 100 ML IV SCH ×3 (07:20→20:36)
[2018-01-22] MEDS ORDERED: DO NOT ADM ANY ANTICOAGULANT DRUGS PRN (07:45)
[2018-01-22] MEDS: INSULIN ASPART SUPPLEMENTAL SCALE SQ SCH ×4 (08:00→20:41)
[2018-01-22] MEDS: DOCUSATE SODIUM 50 MG/SENNA 8.6 MG TAB PO SCH ×2 (08:17→20:37)
[2018-01-22] MEDS: SODIUM CHLORIDE 0.9% FLUSH 10 ML FLUSH IV FLUSH SCH ×2 (08:17→21:00)
--- NOTE | 2018-01-22 12:12 | HHI.PR ---
Subjective Remarks Follow-up for incarcerated hernia Patient just got back from surgery. She has no complaints. She has a NG tube still in place on intermittent suction. Per patient's nurse she refused her insulin and I educated patient on this then she denied this to me. She has no other complaints. She said that she feels good at the moment. Denies any abdominal pain. Denies nausea or vomiting. Objective Vitals Vital Signs Date Time Temp Pulse Resp B/P (MAP) Pulse Ox O2 Delivery O2 Flow Rate FiO2 01/22/18 07:45 98.3 87 16 128/69 (88) 95 Nasal Cannula 4 01/22/18 07:30 88 16 130/72 (91) 95 Nasal Cannula 4 01/22/18 07:15 91 16 138/70 (92) 95 Nasal Cannula 4 01/22/18 07:00 90 15 113/59 (77) 95 Nasal Cannula 4 01/22/18 06:45 91 15 111/56 (74) 95 Nasal Cannula 4 01/22/18 06:36 98.5 99 15 138/77 (97) 97 Nasal Cannula 4 01/22/18 04:50 01/22/18 03:48 92 15 124/64 (84) 97 01/22/18 01:47 85 16 187/106 (133) 95 Room Air 01/22/18 01:44 96 Room Air 01/21/18 22:39 97.7 87 16 127/78 (94) 97 Room Air I/O 01/21/18 01/21/18 01/21/18 01/22/18 01/22/18 01/22/18 07:00 15:00 23:00 07:00 15:00 23:00 Intake Total 1200 ml 200 ml Output Total 20 ml 100 ml Balance 1180 ml 100 ml Intake IV Total 200 ml Other 1200 ml Output Urine Total 100 ml Estimated Blood Loss 20 ml Result Diagram: 01/22/18 0140 01/22/18 0140 Objective Remarks GENERAL: in NAD NG tube in place. CARDIOVASCULAR: Regular rate and rhythm without murmurs, gallops, or rubs. RESPIRATORY: Breath sounds equal bilaterally. No accessory muscle use. GASTROINTESTINAL: Abdomen soft, non-tender, nondistended. binder in place. MUSCULOSKELETAL: No cyanosis, or edema. BACK: Nontender without obvious deformity. No CVA tenderness. Medications and IVs Current Medications Sodium Chloride 500 ml @ 500 mls/hr BOLUS ONCE IV Last administered on at 02:03; Start 01/22/18 at 02:00; Stop 01/22/18 at 02:59; Status DC Famotidine (Pepcid Inj) 20 mg ONCE IV PUSH Last administered on 01/22/18at 02:02 ; Start 01/22/18 at 02:00 Ondansetron HCl (Zofran Inj) 4 mg ONCE ONCE IV PUSH Last administered on at 02:03; Start 01/22/18 at 02:00; Stop 01/22/18 at 02:01; Status DC Morphine Sulfate (Morphine Inj) 2 mg ONCE ONCE IV PUSH Last administered on at 02:03; Start 01/22/18 at 02:00; Stop 01/22/18 at 02:01; Status DC Diatrizoate Meglum/ Diatrizoate Sod ( Gastroshakira Liq) 18 ml ONCE ONCE PO ; Start 01/22/18 at 02:00; Stop 01/22/18 at 02:01; Status DC Piperacillin Sod/ Tazobactam Sod 100 ml @ 200 mls/hr Q6H IV ; Start 01/22/18 at 04:00; Stop 01/22/18 at 07:11; Status DC Sodium Chloride 1,000 ml @ 100 mls/hr Q10H IV Last administered on 01/22/18at 04:08; Start 01/22/18 at 04:08 Sodium Chloride (NS Flush) 2 ml UNSCH PRN IV FLUSH FLUSH AFTER USING IV ACCESS ; Start 01/22/18 at 04:15 Sodium Chloride (NS Flush) 2 ml BID IV FLUSH ; Start 01/22/18 at 09:00 Ondansetron HCl (Zofran Inj) 4 mg Q6H PRN IVP NAUSEA OR VOMITING; Start at 04:15 Acetaminophen (Tylenol) 650 mg Q6H PRN PO FEVER; Start 01/22/18 at 04:15 Acetaminophen/ Hydrocodone Bitart ([place] 5-325 Mg) 1 tab Q4H PRN PO PAIN SCALE 3 TO 5; Start 01/22/18 at 04:15; Stop 01/22/18 at 07:00; Status DC Morphine Sulfate (Morphine Inj) 2 mg Q3H PRN IV PUSH Pain 6-10; Start 01/22/18 at 04:15; Stop 01/22/18 at 07:00; Status DC Senna/Docusate Sodium (Johanny-Colace) 1 tab BID PO ; Start 01/22/18 at 09:00 Magnesium Hydroxide (Milk Of Magnesia Liq) 30 ml Q12H PRN PO Mild constipation ; Start 01/22/18 at 04:15 Sennosides (Senokot) 17.2 mg Q12H PRN PO Moderate constipation; Start 01/22/18 at 04:15 Bisacodyl (Dulcolax Supp) 10 mg DAILY PRN RECTAL SEVERE CONSITIPATION; Start at 04:15 Lactulose (Lactulose Liq) 30 ml DAILY PRN PO SEVERE CONSITIPATION; Start at 04:15 Sodium Chloride 500 ml @ 500 mls/hr BOLUS ONCE IV ; Start 01/22/18 at 04:15; Stop 01/22/18 at 05:14; Status DC Morphine Sulfate (Morphine Inj) 2 mg ONCE ONCE IV PUSH Last administered on at 04:44; Start 01/22/18 at 04:45; Stop 01/22/18 at 04:46; Status DC Dextrose (D50w (Vial) Inj) 50 ml UNSCH PRN IV PUSH HYPOGLYCEMIA-SEE COMMENTS; Start 01/22/18 at 04:45 Glucagon (Glucagon Inj) 1 mg UNSCH PRN OTHER HYPOGLYCEMIA-SEE COMMENTS; Start 01/22/18 at 04:45 Insulin Aspart (NovoLOG SUPPLEMENTAL SCALE) 1 ACHS SLIDING SCALE SQ ; Start at 08:00 Lidocaine/ Epinephrine (Xylocaine-Epi 1%-1:100,000 Inj) 30 ml STK-MED ONCE .ROUTE ; Start 01/22/18 at 04:55; Stop 01/22/18 at 04:56; Status DC Sodium Bicarbonate (Sodium Bicarbonate 8.4% Inj) 50 meq STK-MED ONCE .ROUTE ; Start 01/22/18 at 04:55; Stop 01/22/18 at 04:56; Status DC Bupivacaine HCl (Marcaine Pf 0.5% Inj) 30 ml STK-MED ONCE .ROUTE ; Start at 04:56; Stop 01/22/18 at 04:57; Status DC Bacitracin (Baciguent Oint) 15 applic STK-MED ONCE .ROUTE ; Start 01/22/18 at 04 :56; Stop 01/22/18 at 04:57; Status DC Acetaminophen 100 ml @ As Directed STK-MED ONCE IV ; Start 01/22/18 at 05:03; Stop 01/22/18 at 05:04; Status DC Famotidine (Pepcid Inj) 20 mg STK-MED ONCE .ROUTE ; Start 01/22/18 at 05:03; Stop 01/22/18 at 05:04; Status DC Metronidazole 100 ml @ As Directed STK-MED ONCE IV ; Start 01/22/18 at 05:12; Stop 01/22/18 at 05:13; Status DC Cefazolin Sodium (Ancef Inj) 1,000 mg STK-MED ONCE .ROUTE ; Start 01/22/18 at 05 :32; Stop 01/22/18 at 05:33; Status DC Morphine Sulfate (Morphine Inj) 4 mg Q2HR PRN IV PUSH PAIN SCALE 1-3; Start at 06:30 Hydromorphone HCl (Dilaudid Pf Inj) 1 mg Q4H PRN IV PUSH PAIN SCALE 7-10; Start 01/22/18 at 06:30 Ketorolac Tromethamine (Toradol Inj) 30 mg Q6H PRN IM PAIN SCALE 4 TO 6; Start 01/22/18 at 06:30; Status UNV Enoxaparin Sodium (Lovenox Inj) 40 mg Q24H SQ ; Start 01/23/18 at 06:30 Fentanyl Citrate (fentaNYL INJ) 100 mcg STK-MED ONCE .ROUTE ; Start 01/22/18 at 06:50; Stop 01/22/18 at 06:51; Status DC Ketorolac Tromethamine (Toradol Inj) 15 mg Q6H PRN IV PUSH PAIN SCALE 4-6; Start 01/22/18 at 07:00; Stop 01/27/18 at 06:59 Piperacillin Sod/ Tazobactam Sod 100 ml @ 200 mls/hr Q6H IV Last administered on 01/22/18at 07:20; Start 01/22/18 at 08:00 Miscellaneous Information ALL NURSING DEPARTME... UNSCH PRN .XX SEE LABEL COMMENTS; Start 01/22/18 at 07:45; Stop 01/23/18 at 07:44 A/P Problem List: (1) Bowel obstruction ICD Code: K56.609 - Unspecified intestinal obstruction, unspecified as to partial versus complete obstruction (2) Hernia ICD Code: K46.9 - Unspecified abdominal hernia without obstruction or gangrene (3) Leukocytosis ICD Code: D72.829 - Elevated white blood cell count, unspecified (4) HTN (hypertension) ICD Code: I10 - Essential (primary) hypertension (5) DM (diabetes mellitus) ICD Code: E11.9 - Type 2 diabetes mellitus without complications Assessment and Plan This is a 67 y/o F who presented with abdominal pain Incarcerated umbilical hernia causing partial small bowel obstruction -Status post reduction and repair of open umbilical hernia. -Symptoms improved. Patient has NG tube to suction place. Management per general surgeon. -Patient on Zosyn. Continue Zosyn. HTN: Uncontrolled. BP 180's, likely compounded by pain complaints. -Blood pressure control at the moment. Most likely was secondary to pain. DM: -Patient declined insulin and she was educated extensively on the insulin sliding scale. She stated she understood. Continue with insulin sliding scale. Will hold home Lantus until patient can have oral intake. DVT Prophylaxis: SCD/Teds. Mireya Rubalcava MD Jan 22, 2018 12:12
[2018-01-22] MEDS ORDERED: NEOSTIGMINE 5 MG/5 ML SYRINGE IV PUSH ONE (12:20)
[2018-01-22] MEDS ORDERED: ceFAZolin INJ 1,000 MG VIAL IV ONE (12:20)
[2018-01-22] MEDS ORDERED: PROPOFOL 200 MG/20 ML AMP IV ONE (12:20)
[2018-01-22] MEDS ORDERED: ONDANSETRON HCL 4 MG/2 ML VIAL IV ONE (12:20)
[2018-01-22] MEDS ORDERED: KETOROLAC TROMETHAMINE 30 MG/ML (IVP) VIAL IV PUSH ONE (12:20)
[2018-01-22] MEDS ORDERED: LACTATED RINGER'S 1000 ML INJ 1,000 ML IV ONE (12:20)
[2018-01-22] MEDS ORDERED: GLYCOPYRROLATE 1 MG/5 ML SYRINGE IV PUSH ONE (12:20)
[2018-01-22] MEDS ORDERED: SUCCINYLCHOLINE CHLORIDE 200 MG/10 ML VIAL IV ONE (12:20)
[2018-01-22] MEDS ORDERED: PHENYLEPH/NS 1000 MCG/10 ML SYR IV ONE (12:20)
[2018-01-22] MEDS ORDERED: LIDOCAINE HCL 1% PF 5 ML SYRINGE OTHER ONE (12:20)
[2018-01-22] MEDS ORDERED: DEXAMETHASONE SOD PHOS 4 MG/ML VIAL IV ONE (12:20)
[2018-01-22] MEDS ORDERED: ROCURONIUM INJ 50 MG/5 ML SYRINGE IV PUSH ONE (12:20)
[2018-01-22] MEDS ORDERED: BENZOCAINE 6 MG/MENTHOL 10 MG LOZENGE BUCCAL PRN (14:45)
--- NOTE | 2018-01-22 14:47 | HHI.PR ---
Subjective Subjective Notes Patient is doing well. She denies abdominal pain. She is hungry. She wants to get out of bed. She requests throat lozenges. Objective Vitals/I&O Vital Signs Date Time Temp Pulse Resp B/P (MAP) Pulse Ox O2 Delivery O2 Flow Rate FiO2 01/22/18 12:00 98.9 102 16 135/62 (86) 94 01/22/18 07:45 Nasal Cannula 4 Labs Laboratory Tests Test 01/22/18 01:40 White Blood Count 16.8 Red Blood Count 5.91 Hemoglobin 17.2 Hematocrit 51.0 Mean Corpuscular Volume 86.3 Mean Corpuscular Hemoglobin 29.1 Mean Corpuscular Hemoglobin Concent 33.7 Red Cell Distribution Width 13.9 Platelet Count 300 Mean Platelet Volume 8.4 Neutrophils (%) (Auto) 79.2 Lymphocytes (%) (Auto) 15.5 Monocytes (%) (Auto) 4.6 Eosinophils (%) (Auto) 0.4 Basophils (%) (Auto) 0.3 Neutrophils # (Auto) 13.3 Lymphocytes # (Auto) 2.6 Monocytes # (Auto) 0.8 Eosinophils # (Auto) 0.1 Basophils # (Auto) 0.0 CBC Comment DIFF FINAL Differential Comment Urine Color YELLOW Urine Turbidity CLEAR Urine pH 5.0 Urine Specific [place] 1.041 Urine Protein NEG Urine Glucose (UA) 1000 Urine Ketones TRACE Urine Occult Blood NEG Urine Nitrite NEG Urine Bilirubin NEG Urine Urobilinogen LESS THAN 2.0 Urine Leukocyte Esterase TRACE Urine RBC 2 Urine WBC 4 Urine Squamous Epithelial Cells 2 Microscopic Urinalysis Comment CULT NOT INDICATED Blood Urea Nitrogen 22 Creatinine 1.05 Random Glucose 220 Total Protein 8.1 Albumin 4.0 Calcium Level 10.2 Alkaline Phosphatase 86 Aspartate Amino Transf (AST/SGOT) 34 Alanine Aminotransferase (ALT/SGPT) 40 Total Bilirubin 0.5 Sodium Level 138 Potassium Level 4.1 Chloride Level 98 Carbon Dioxide Level 27.8 Anion Gap 12 Estimat Glomerular Filtration Rate 52 Lipase 234 Cardiovascular: Regular Lungs: Clear Abdomen: Non-distended, Other (Morbidly obese abdomen. Transverse dressing with minimal drainage. No erythema or ecchymotic change. Abdominal binder removed and replaced.) A/P Assessment and Plan Postop day 0 status post open repair incarcerated umbilical hernia. Doing well. Clamp NG and remove later today if no nausea or vomiting. Get out of bed all wall calls it up in chair. Clear liquid diet. Chloraseptic lozenges as needed. Carlito Rodriges MD Jan 22, 2018 14:47
[2018-01-23] MEDS: SODIUM CHLOR 0.9% 1000 ML INJ 1,000 ML IV SCH ×2 (00:08→10:08)
[2018-01-23] MEDS: PIPERACIL-TAZO 4.5 GM PREMIX 100 ML IV SCH ×2 (02:00→07:54)
[2018-01-23 03:41] VITALS: BP 105/73; PULSE 91; RESP 18; TEMP 98.5; O2SAT 95
[2018-01-23] MEDS ORDERED: ENOXAPARIN SODIUM 40 MG/0.4 ML SYRINGE SQ SCH (06:30)
[2018-01-23 07:16] LABS: AUTOMATED NEUTROPHIL # 4.8 TH/MM3 (1.8-7.7); BASOPHIL % 0.6 % (0.0-2.0); EOSINOPHIL # 0.2 TH/MM3 (0-0.4); EOSINOPHIL % 2.3 % (0.0-4.0); HEMATOCRIT 43.2 % (35.0-46.0); HEMOGLOBIN 14.4 GM/DL (11.6-15.3); LYMPH % 29.3 % (9.0-44.0); LYMPHOCYTE # 2.4 TH/MM3 (1.0-4.8); MEAN CELL VOLUME 86.8 FL (80.0-100.0); MEAN CORPUSCULAR HGB CONC 33.4 % (32.0-36.0); MONO % 8.5 % (0.0-8.0); MONOCYTE # 0.7 TH/MM3 (0-0.9); NEUT % 59.3 % (16.0-70.0); PLATELET COUNT 236 TH/MM3 (150-450); RED BLOOD COUNT 4.98 MIL/MM3 (4.00-5.30); RED CELL DISTRIBUTION WIDTH 13.6 % (11.6-17.2); WHITE BLOOD COUNT 8.1 TH/MM3 (4.0-11.0)
[2018-01-23 07:44] VITALS: BP 126/57; PULSE 77; RESP 19; TEMP 98; O2SAT 94
[2018-01-23] MEDS: INSULIN ASPART SUPPLEMENTAL SCALE SQ SCH ×2 (07:54→11:26)
[2018-01-23] MEDS: SODIUM CHLORIDE 0.9% FLUSH 10 ML FLUSH IV FLUSH SCH (07:54)
[2018-01-23] MEDS: DOCUSATE SODIUM 50 MG/SENNA 8.6 MG TAB PO SCH (07:54)
[2018-01-23 08:21] LABS: ALBUMIN 2.8 GM/DL (3.4-5.0); ALKALINE PHOSPHATASE 56 U/L (45-117); ALT (GPT) 22 U/L (10-53); AST (GOT) 17 U/L (15-37); BICARBONATE 27.6 MEQ/L (21.0-32.0); BLOOD UREA NITROGEN 23 MG/DL (7-18); CALCIUM 8.4 MG/DL (8.5-10.1); CHLORIDE 106 MEQ/L (98-107); CREATININE 0.98 MG/DL (0.50-1.00); GLOMERULAR FILTRATION RATE 57 ML/MIN (>89); GLUCOSE,RANDOM 129 MG/DL (74-106); SODIUM (NA) 143 MEQ/L (136-145); TOTAL BILIRUBIN ADULT 0.7 MG/DL (0.2-1.0)
--- NOTE | 2018-01-23 10:10 | HHI.PR ---
Subjective Subjective Notes doing well, tolerating diet, bowel movement times two, no N/V, pain ok Objective Vitals/I&O Vital Signs Date Time Temp Pulse Resp B/P (MAP) Pulse Ox O2 Delivery O2 Flow Rate FiO2 01/23/18 07:44 98.0 77 19 126/57 (80) 94 01/22/18 07:45 Nasal Cannula 4 Labs Laboratory Tests Test 01/23/18 06:06 01/23/18 06:08 White Blood Count 8.1 Red Blood Count 4.98 Hemoglobin 14.4 Hematocrit 43.2 Mean Corpuscular Volume 86.8 Mean Corpuscular Hemoglobin 29.0 Mean Corpuscular Hemoglobin Concent 33.4 Red Cell Distribution Width 13.6 Platelet Count 236 Mean Platelet Volume 8.0 Neutrophils (%) (Auto) 59.3 Lymphocytes (%) (Auto) 29.3 Monocytes (%) (Auto) 8.5 Eosinophils (%) (Auto) 2.3 Basophils (%) (Auto) 0.6 Neutrophils # (Auto) 4.8 Lymphocytes # (Auto) 2.4 Monocytes # (Auto) 0.7 Eosinophils # (Auto) 0.2 Basophils # (Auto) 0.0 CBC Comment DIFF FINAL Differential Comment Blood Urea Nitrogen 23 Creatinine 0.98 Random Glucose 129 Total Protein 6.0 Albumin 2.8 Calcium Level 8.4 Alkaline Phosphatase 56 Aspartate Amino Transf (AST/SGOT) 17 Alanine Aminotransferase (ALT/SGPT) 22 Total Bilirubin 0.7 Sodium Level 143 Potassium Level 3.5 Chloride Level 106 Carbon Dioxide Level 27.6 Anion Gap 9 Estimat Glomerular Filtration Rate 57 Abdomen: Non-distended, Post-op tenderness, BS normal Wound Wound : Wound Location: Abdomen Appearance: Clean & Dry Dressing: Dry A/P Assessment and Plan POD1 incarcerated umbilical hernia - primary repair ok to DC home with po meds FU in office this week RX on chart Chuck Webb MD Jan 23, 2018 10:10
[2018-01-23 11:39] VITALS: BP 127/64; PULSE 76; RESP 19; TEMP 98; O2SAT 93
[2018-01-23] MEDS ORDERED: LEVA750T9 PO (11:57)
[2018-01-23] MEDS ORDERED: NORC5TAB PO (11:57)
--- NOTE | 2018-01-23 12:06 | HHI.DCPOC ---
Discharge Care Plan Diagnosis: (1) Bowel obstruction (2) Hernia Additional Problems You will have to hold Lantus because during your hospitalizations you only required 2 units of insulin. This is most likely due to decrease oral intake due to small bowel obstruction from the hernia. Once you are tolerating your normal food intake you most like can resume your home dosage but should speak to your primary care provider in 3-5 days before doing this. Please record your blood sugars for your provider so that medication can be adjusted. Also your blood pressure has been normal during your hospitalization without any blood pressure medication which most likely due to your illness. Do not take your blood pressure medication expect for amlodipine. Record your blood pressure and follow up with your doctor in 3-5 days to see if you can restart them. Goals to Promote Your Health * To prevent worsening of your condition and complications * To maintain your health at the optimal level Directions to Meet Your Goals Take your medications as prescribed Follow your dietary instruction Follow activity as directed Keep your appointments as scheduled Take your immunizations and boosters as scheduled If your symptoms worsen call your PCP, if no PCP go to Urgent Care Center or Emergency Room Smoking is Dangerous to Your Health. Avoid second hand smoke Call the 24-hour hour crisis hotline for domestic abuse at Mireya Rubalcava MD Jan 23, 2018 12:06
--- NOTE | 2018-01-23 12:07 | HHI.DS ---
Discharge Summary Admission Date Jan 22, 2018 at 04:12 Discharge Date: Jan 23, 2018 Admitting Diagnosis hernia with early obstruction (1) Bowel obstruction ICD Code: K56.609 - Unspecified intestinal obstruction, unspecified as to partial versus complete obstruction Diagnosis: Principal (2) Hernia ICD Code: K46.9 - Unspecified abdominal hernia without obstruction or gangrene Diagnosis: Principal (3) HTN (hypertension) ICD Code: I10 - Essential (primary) hypertension Diagnosis: Secondary (4) DM (diabetes mellitus) ICD Code: E11.9 - Type 2 diabetes mellitus without complications Diagnosis: Secondary Procedures See hospital course Brief History - From Admission This is a 67-year-old female with a PMH of HTN, Hyperlipidemia, CAD, DM and PUD who presented to ER with complaints of abdominal pain x2 months. States pain has been intermittent, cramping, associated w/ nausea/vomiting. Today, states pain was severe 8-07/11, took Hycosamine however no improvement at which time she came to the ER. Denies fever, chills or diarrhea. On arrival, BP 127/78, HR 87, O2 sat 97% on RA, Afebrile. WBC 16.8. Creatinine 1.05, produces 0.55 on 05/11/14. BS 220. UA negative for UTI. CT Abdomen/Pelvis with anterior abdominal wall hernia containing a loop of ileum with partial obstruction. Dr. Webb consulted, plan is for surgical intervention this morning. CBC/BMP: 01/23/18 0606 01/23/18 0608 Significant Findings Laboratory Tests Test 01/22/18 01:40 01/23/18 06:06 01/23/18 06:08 White Blood Count 16.8 TH/MM3 (4.0-11.0) Red Blood Count 5.91 MIL/MM3 (4.00-5.30) Hemoglobin 17.2 GM/DL (11.6-15.3) Hematocrit 51.0 % (35.0-46.0) Neutrophils (%) (Auto) 79.2 % (16.0-70.0) Neutrophils # (Auto) 13.3 TH/MM3 (1.8-7.7) Urine Specific [place] 1.041 (1.002-1.035) Urine Glucose (UA) 1000 mg/dL (NEG) Urine Ketones TRACE mg/dL (NEG) Urine Leukocyte Esterase TRACE (NEG) Blood Urea Nitrogen 22 MG/DL (7-18) 23 MG/DL (7-18) Creatinine 1.05 MG/DL (0.50-1.00) Random Glucose 220 MG/DL (74-106) 129 MG/DL (74-106) Calcium Level 10.2 MG/DL (8.5-10.1) 8.4 MG/DL (8.5-10.1) Estimat Glomerular Filtration Rate 52 ML/MIN (>89) 57 ML/MIN (>89) Monocytes (%) (Auto) 8.5 % (0.0-8.0) Total Protein 6.0 GM/DL (6.4-8.2) Albumin 2.8 GM/DL (3.4-5.0) Imaging Last Impressions Abdomen/Pelvis CT 01/22/18 0000 Signed Impressions: Service Date/Time: Wednesday, January 22, 2018 02:16 - CONCLUSION: 1. Anterior abdominal wall hernia containing a loop of ileum with apparent early or partial obstruction. The small bowel proximal to the hernia a borderline dilated with multiple air-fluid levels. The bowel distal to the hernia is decompressed. 2. Mild diverticulosis. Derrick French MD PE at Discharge GENERAL: in NAD NG tube in place. CARDIOVASCULAR: Regular rate and rhythm without murmurs, gallops, or rubs. RESPIRATORY: Breath sounds equal bilaterally. No accessory muscle use. GASTROINTESTINAL: Abdomen soft, non-tender, nondistended. binder in place. MUSCULOSKELETAL: No cyanosis, or edema. BACK: Nontender without obvious deformity. No CVA tenderness. Pt update on day of discharge Follow-up for incarcerated umbilical hernia status post repair Patient denies any abdominal pain. She states that she tolerated her diet. Patient very anxious to go home. She had no other complaints. Discussed case with patient's nurse. Hospital Course This is a 67 y/o F who presented with abdominal pain Incarcerated umbilical hernia causing partial small bowel obstruction -Patient initially had a NG tube placed in which she had a reduction repair of the open umbilical hernia. She did well to surgery and NG tube was removed she tolerated her diet. -Patient was placed on Zosyn and date of discharge she was switched to Levaquin. -Patient was cleared by general surgeon the day of discharge with close follow- up within the week. HTN: -Initially blood pressure was uncontrolled but then quickly her blood pressure was normotensive off of her antihypertensive medication. Patient initially was not on any antihypertensive medication because she was n.p.o. due to the partial small bowel obstruction and NG tube placement. -On the day of discharge patient stated okay to resume amlodipine but she must hold all other blood pressure medication since she is mostly normotensive with a systolic blood pressure in the 120s 130s. Patient told to see her primary care provider in 3-5 days to determine if she can restart her home medication. DM: -During the hospitalization patient was placed on insulin sliding scale and she declined to have her insulin shot. She had a total of 2 units of insulin during hospitalization. Patient on Victoza, Lantus, and metformin at home. Blood sugars ran around 120s-180s. Most likely her blood sugars were running lower due to the small bowel obstruction. Base on blood sugar during hospitalization patient told to hold Lantus. She was told to monitor blood sugars and bring them to her primary care provider in 3-5 days to determine if she can restart Lantus. Pt Condition on Discharge: Good Discharge Disposition: Discharge Home Discharge Time: > 30 minutes Discharge Instructions DIET: Follow Instructions for: Heart Healthy Diet, Diabetic Diet Activities you can perform: See Additionl Instruction Other Activity Instructions: NO lifting or pushing items. Follow up Referrals: PCP Follow-up - 3-5 Days Surgical - 2-3 Days with Chuck Webb MD New Medications: Hydrocodone-Acetaminophen ([place]tis) 5 Mg-325 Mg Tab 1 TAB PO Q4H PRN for PAIN, #20 TAB 0 Refills Levofloxacin (Levaquin) 750 Mg Tablet 750 MG PO DAILY for Infection, #7 TAB 0 Refills Continued Medications: Amlodipine (Norvasc) 2.5 Mg Tab 2.5 MG PO DAILY for Blood Pressure Management, #30 TAB 0 Refills Ascorbic Acid (Vitamin C) 1,000 Mg Tablet.er 1000 MG PO DAILY Aspirin (Aspirin) 81 Mg Chew 81 MG CHEW DAILY, TAB 0 Refills Calcium Carbonate (Calcium Carbonate) 1,500 Mg Tab 1500 MG PO DAILY for Calcium Supplement, TAB 0 Refills 1,500 mg calcium carbonate (600 mg elemental calcium) Canagliflozin (Invokana) 300 Mg Tab 300 MG PO DAILY for Blood Sugar Management, #30 TAB 0 Refills Take before 1st meal of day. Cholecalciferol (Vitamin D3) 1,000 Unit Tab 1000 UNITS PO DAILY for Nutritional Supplement, #1 BOTTLE [address] (Fenofibric Acid Dr) 135 mg Capdr 135 MG PO DAILY, #30 CAP 0 Refills Cyanocobalamin (Vitamin B-12) 500 Mcg Tab 500 MCG PO DAILY for Nutritional Supplement, #1 BOTTLE 0 Refills Gabapentin (Gabapentin) 300 Mg Cap 300 MG PO BID, #60 CAP 0 Refills Levothyroxine (Levothyroxine) 25 Mcg Tab 25 MCG PO DAILY for Thyroid, #30 TAB 0 Refills Liraglutide Inj (Victoza Inj) 18 Mg/3 Ml Pen 1.8 MG SQ HS, #1 PEN 0 Refills Metformin (Metformin) 500 Mg Tab 500 MG PO BIDPC for Blood Sugar Management, #60 TAB 0 Refills Multiple Vitamin (Multiple Vitamin) 1 Tab 1 TAB PO DAILY for Nutritional Supplement, TAB 0 Refills Multiple Vitamins W/ Minerals (Ocuvite Adult 50+) 1 Cap 1 CAP PO DAILY for Nutritional Supplement, CAP 0 Refills Niacin (Niacin) 500 Mg Tab 500 MG PO BID for Cholesterol Management, #60 TAB 0 Refills Simvastatin (Simvastatin) 5 Mg Tab 5 MG PO DAILY for Cholesterol Management, #30 TAB 0 Refills Discontinued Medications: Enalapril (Enalapril) 20 Mg Tab 20 MG PO DAILY, #30 TAB 0 Refills Insulin Glargine Inj (Lantus Inj) 1,000 Unit/10 Ml Vial 44 UNITS SQ HS for Blood Sugar Management, VIAL 0 Refills Triamterene-Hydrochlorothiazide (Triamterene-Hydrochlorothiazide) 37.5-25 Mg Cap 1 CAP PO DAILY, #60 CAP 0 Refills Mireya Rubalcava MD Jan 23, 2018 12:07
== END 2018-01-23 13:48 | disposition home or self-care (01) | DRG 354 ==
LOC: NEPE 22:29 → NEDA 01-22 04:12 → N06B 01-22 08:12
PROVIDERS: ADMIT Hospitalist; ATTEND Family Medicine
PROC: 0D9670Z Drainage of Stomach with Drainage Device, Via Natural or Artificial Opening (ICD-10-PCS; 2018-01-22)
PROC: 0WQF0ZZ Repair Abdominal Wall, Open Approach (ICD-10-PCS; principal; 2018-01-22 05:05)
DX: K42.0 Umbilical hernia with obstruction, without gangrene (principal); Z68.43 Body mass index [BMI] 50.0-59.9, adult; I10 Essential (primary) hypertension; E11.9 Type 2 diabetes mellitus without complications; D72.829 Elevated white blood cell count, unspecified; E78.5 Hyperlipidemia, unspecified; E66.01 Morbid (severe) obesity due to excess calories; I25.10 Atherosclerotic heart disease of native coronary artery without angina pectoris; K21.9 Gastro-esophageal reflux disease without esophagitis; K44.9 Diaphragmatic hernia without obstruction or gangrene; Z87.11 Personal history of peptic ulcer disease; Z79.4 Long term (current) use of insulin
CPT/HCPCS: 74176; 80053; 81001; 82948; 83690; 85025; 88302; 88305; 94150; 96374; 96375; J0131; J0330; J0690; J1100; J1650; J1815; J1885; J2270; J2370; J2405; J2543; J2710; J3010; J7030; J7040; J7120